=== PATIENT | male | born 1955 | race Caucasian/White ===

== ENCOUNTER → 2021-04-23 | Outpatient (CLI) | payer MEDICARE, BC ==
[~2021-04-23] VITALS: Ht 185.4 cm; Wt 115.5 kg
[~2021-04-23] MED LIST: ADDERALL10 MG PO; AMBIEN 10MG10 MG PO; GLUMETZA1000 MG PO; LYRICA 100MG C100 M1 PO
[2021-04-23 08:56] VITALS: BP 141/91; PULSE 54; TEMP 98.3
[2021-04-23 09:40] VITALS: BP 164/95; PULSE 52
== END ==
LOC: COL.RAD 08:33
DX: Z51.0 Encounter for antineoplastic radiation therapy (principal); C20 Malignant neoplasm of rectum